=== PATIENT | female | born 1970 | race Caucasian/White ===

== ENCOUNTER 2022-06-13 11:36 | Emergency (ER) | payer OTHER ==
[~2022-06-13] VITALS: Ht 170.2 cm; Wt 74.8 kg
[2022-06-13 11:50] VITALS: BP 102/67
--- NOTE | 2022-06-13 12:00 | NUR ---
51/F WALKED IN C/O RIGHT LEG PAIN X 1 WK D/T ANKLE BRACE PLACEMENT ON THE RIGHT LEG. PT REPORTS MINOR WOUND FROM THE BRACE. PT REQUESTING MEDICAL DOCUMENTATION FOR REMOVING BRACE. LOCAL ANNOUNCER [id number] USED [facility]: HITESH
[2022-06-13] MEDS ORDERED: BACI-416 TP (13:00)
--- NOTE | 2022-06-13 13:10 | NUR ---
Patient discharged with v/s stable. Written and verbal after care instructions given and explained. Patient alert, oriented and verbalized understanding of instructions. Ambulatory with steady gait. All questions addressed prior to discharge. ID band removed. Patient advised to follow up with PMD. Rx given. Patient educated on indication of medication including possible reaction and side effects. Opportunity to ask questions provided and answered. [employer]EDER # [id number] USED
== END 2022-06-13 13:10 | disposition home or self-care (01) ==
LOC: MED 11:36
DX: S90.511A Abrasion, right ankle, initial encounter (principal); Z79.2 Long term (current) use of antibiotics; X58.XXXA Exposure to other specified factors, initial encounter; Y92.89 Other specified places as the place of occurrence of the external cause; Y93.89 Activity, other specified; Y99.8 Other external cause status
CPT/HCPCS: 99281